=== PATIENT | male | born 1930 | race Caucasian/White ===

== ENCOUNTER 2017-07-16 14:11 | Emergency (ER) ==
[2017-07-16 14:19] VITALS: BP 163/55; TEMP 97.6; BMI 29.7
--- NOTE | 2017-07-16 14:52 | ED.PDOC ---
General ED Provider: Dr. LACHELLE CHRISTIANSON JR Chief Complaint: Constipation Stated Complaint: c/o constipation past week-- some out yesterday- enemas and laxatives- little results-- aggravated hemorrhoids--rectum painful--denies abd cramping sm amt of blood from rectum and hemorrhoid are now out ]97.6 76 20 96% 163/55. AAA. 3/-4.1x4.5. 12/05/17-4.5x3.7. 6/??/16--5.3x4.7. scan in 2 days Time Seen by Physician: 14:51 Mode of Arrival: Walk-In Information Source: Patient, Family Exam Limitations: No limitations Primary Care Provider: SIERRA [facility] Nursing and Triage Documentation Reviewed and Agree: No Review of Systems - Review Of Systems Constitutional: Reports: Malaise Eyes: Reports: No symptoms Ears, Nose, Mouth, Throat: Reports: No symptoms Respiratory: Reports: No symptoms Cardiac: Reports: Other (easily fatigued) GI: Reports: Abdomen distended, Abdominal pain, Constipated : Reports: No symptoms Musculoskeletal: Reports: No symptoms Skin: Reports: No symptoms Neurological: Reports: No symptoms Endocrine: Reports: No symptoms Hematologic/Lymphatic: Reports: No symptoms All Other Systems: Other Past Medical History - Past Medical History Previously Healthy: No Endocrine: Reports: None Cardiovascular: Reports: [place], Hypertension, Other (AAA) Respiratory: Reports: None Hematological: Reports: None Gastrointestinal: Reports: None Genitourinary: Reports: None Neuro/Psych: Reports: None Musculoskeletal: Reports: None Cancer: Reports: None - Surgical History General Surgical History: Reports: None - Family History Family History: Reports: None - Social History Smoking Status: Former smoker Hx Substance Use: No Alcohol Screening: None Physical Exam - Physical Exam Appearance: Well-appearing Pain Distress: Mild Eyes: ANDREW, EOMI, Conjunctiva clear ENT: Ears normal, Nose normal, Oropharynx normal Neck: Supple Respiratory: Airway patent, Breath sounds clear, Breath sounds equal, Respirations nonlabored Cardiovascular: RRR, Pulses normal, No rub, No murmur GI/: Soft, Nontender, No masses, Bowel sounds normal, No Organomegaly Musculoskeletal: Normal strength, ROM intact, No edema, No calf tenderness Skin: Warm, Dry, Normal color Neurological: Sensation intact, Motor intact, Reflexes intact, Cranial nerves intact, Alert, Oriented (responses are slow and accurate) Psychiatric: Affect appropriate, Mood appropriate Critical Care Note - Critical Care Note Total Time (mins): 0 Course - Course Hematology/Chemistry: 07/16/17 15:10 07/16/17 15:10 Orders, Labs, Meds: Lab Review 07/16/17 07/16/17 07/16/17 15:00 15:10 15:10 WBC 8.47 RBC 4.19 L Hgb 12.0 L Hct 36.2 L MCV 86.4 MCH 28.6 MCHC 33.1 RDW Coeff of Chato 13.9 Plt Count 291 Immature Gran % (Auto) 0.5 Neut % (Auto) 71.8 Lymph % (Auto) 13.6 Cache % (Auto) 9.8 Eos % (Auto) 3.9 Baso % (Auto) 0.4 Immature Gran # (Auto) 0.0 Neut # 6.1 Lymph # 1.2 Cache # 0.8 Eos # 0.3 Baso # 0.0 Sodium 134 L Potassium 5.1 Chloride 99 Carbon Dioxide 26 Anion Gap 14.1 BUN 18 Creatinine 1.27 H Estimated GFR (MDRD) 54.00 BUN/Creatinine Ratio 14.17 Glucose 79 L Calcium 9.7 Total Bilirubin 0.69 AST 20 ALT 18 Alkaline Phosphatase 73 Total Protein 7.5 Albumin 4.2 Globulin 3.3 Albumin/Globulin Ratio 1.27 Amylase 63 Lipase 31 Procalcitonin Urine Color Urine Clarity Urine pH Ur Specific [place] Urine Protein Urine Glucose (UA) Urine Ketones Urine Blood Urine Nitrite Urine Bilirubin Urine Urobilinogen Ur Leukocyte Esterase Stl Occult Blood (IFOB) Positive Stool Occult Blood #2 No specimen received Stool Occult Blood #3 No specimen received 07/16/17 07/16/17 15:10 15:10 WBC RBC Hgb Hct MCV MCH MCHC RDW Coeff of [place] Plt Count Immature Gran % (Auto) Neut % (Auto) Lymph % (Auto) Cache % (Auto) Eos % (Auto) Baso % (Auto) Immature Gran # (Auto) Neut # Lymph # Cache # Eos # Baso # Sodium Potassium Chloride Carbon Dioxide Anion Gap BUN Creatinine Estimated GFR (MDRD) BUN/Creatinine Ratio Glucose Calcium Total Bilirubin AST ALT Alkaline Phosphatase Total Protein Albumin Globulin Albumin/Globulin Ratio Amylase Lipase Procalcitonin < 0.05 Urine Color Yellow Urine Clarity Clear Urine pH 8.0 Ur Specific [place] 1.015 Urine Protein Negative Urine Glucose (UA) Negative Urine Ketones Negative Urine Blood Negative Urine Nitrite Negative Urine Bilirubin Negative Urine Urobilinogen 0.2 Ur Leukocyte Esterase Negative Stl Occult Blood (IFOB) Stool Occult Blood #2 Stool Occult Blood #3 Orders Category Date Time Status NPO REMINDER: IMAGING ONCE CARE 07/16/17 15:05 Completed ED IV/MEDIPORT/POWERPORT .ONCE EMERGENCY 07/16/17 15:03 Active AMYLASE Stat LAB 07/16/17 15:10 Completed CBC W/ AUTO DIFF Stat LAB 07/16/17 15:10 Completed COMPREHENSIVE METABOLIC PANEL Stat LAB 07/16/17 15:10 Completed LIPASE Stat LAB 07/16/17 15:10 Completed OCCULT BLOOD, STOOL Stat LAB 07/16/17 15:00 Completed PROCALCITONIN Stat LAB 07/16/17 15:10 Completed URINALYSIS C & S IF INDICATED Stat LAB 07/16/17 15:10 Completed 0.9 % Sodium Chloride [Saline Flush] MEDS 07/16/17 15:03 Active 1 syr IVF PRN PRN CT ABDOMEN/PELVIS W/WO CONTRAS Stat RADS 07/16/17 15:04 Completed Medications Generic Name Dose Route Start Last Admin Trade Name Freq PRN Reason Stop Dose Admin Sodium Chloride 1 syr 07/16/17 15:03 Saline Flush IVF PRN PRN To flush IV Vital Signs: Temp Pulse Resp BP Pulse Ox 07/16/17 14:11 97.6 F 76 20 163/55 H 96 Departure - Departure Time of Disposition: 17:29 Disposition: HOME SELF-CARE Discharge Problem: Constipation, Bleeding hemorrhoid Abdominal pain Qualifiers: Abdominal location: generalized Qualified Code(s): R10.84 - Generalized abdominal pain Instructions: Abdominal Pain (ED), Constipation (ED), Hemorrhoids (ED), Astringent (On the skin) Condition: Fair Pt referred to PMD for follow-up: Yes Additional Instructions: consider "tucks" for hemorrhoids may use Bentyl for abdominal pain clear liquids for 12 hours increase fiber in diet for 2-3 days constipation has cleared discomfort is probably from laxatives discuss cat scan with your physician lung changes may or may not require evaluation cat scan should be adequate(should not need further evaluation of aorta at this time(discuss withyour physician) Prescriptions: Dicyclomine HCl [Bentyl] 10 mg PO QID PRN #20 capsule PRN Reason: Abdominal Pain Witch Lenora [Tucks] 1 pkg TP QID PRN #1 pkg PRN Reason: hemorrhoids Allergies/Adverse Reactions: Allergies Penicillins Adverse Reaction (Verified 07/16/17 14:19) Home Medications: Ambulatory Orders Aspirin [Aspirin EC] 81 mg PO DAILYWM 05/16/14 Isosorbide Mononitrate [Imdur] 30 mg PO DAILY #30 tab.er.24h 05/16/14 Nitroglycerin [Nitro-Dur 0.4 mg/Hr] 0.4 mg TD DAILY 05/16/14 Nitroglycerin [Nitrostat] 0.4 mg SL Q5MIN X 3 DOSES PRN 05/16/14 Losartan/Hydrochlorothiazide [Hyzaar 100-25 Tablet] 1 each PO DAILY #30 tablet 03/08/15 Acebutolol HCl [Sectral] 200 mg PO Q12HR 07/16/17 Amlodipine Besylate [Norvasc] 5 mg PO BEDTIME 07/16/17 Dicyclomine HCl [Bentyl] 10 mg PO QID PRN #20 capsule 07/16/17 Digoxin [Lanoxin] 125 mcg PO DIRECTED 07/16/17 Furosemide [Lasix Tab] 20 mg PO QDAC 07/16/17 Potassium Chloride 10 meq PO DAILY 07/16/17 Witch Lenora [Tucks] 1 pkg TP QID PRN #1 pkg 07/16/17
[2017-07-16 15:08] LABS: OCCULT BLOOD INTERNAL QC 1 INTERNAL QC VALID; OCCULT BLOOD INTERNAL QC 2 INTERNAL QC VALID; OCCULT BLOOD INTERNAL QC 3 INTERNAL QC VALID; OCCULT BLOOD SAMPLE 1 POSITIVE (NEGATIVE); OCCULT BLOOD SAMPLE 2 NO SPECIMEN RECEIVED (NEGATIVE); OCCULT BLOOD SAMPLE 3 NO SPECIMEN RECEIVED (NEGATIVE)
[2017-07-16 15:16] LABS: BASOPHILS % (AUTO) 0.4 % (0.0-3.0); EOSINOPHILS # (AUTO) 0.3 K/ul (0.0-0.7); EOSINOPHILS % (AUTO) 3.9 % (0.0-7.0); HEMATOCRIT 36.2 % (42.0-52.0); IMMATURE GRANULOCYTE % (AUTO) 0.5 % (0.0-5.0); LYMPHOCYTES # (AUTO) 1.2 K/uL (0.60-3.4); LYMPHOCYTES % (AUTO) 13.6 (10.0-50.0); MEAN CORPUSCULAR HEMOGLOBIN 28.6 pg (27.0-31.0); MEAN CORPUSCULAR HGB CONC 33.1 (31.8-35.4); MEAN CORPUSCULAR VOLUME 86.4 fl (80.0-94.0); MONOCYTES # (AUTO) 0.8 K/uL (0.4-2.0); MONOCYTES % (AUTO) 9.8 (0-10); NEUTROPHILS # (AUTO) 6.1 K/ul (2.0-6.9); NEUTROPHILS % (AUTO) 71.8; PLATELET COUNT 291 10^3/uL (140-440); RED BLOOD COUNT 4.19 10^6/ul (4.70-6.10); WHITE BLOOD COUNT 8.47 K/ul (4.2-10.2)
[2017-07-16 15:20] LABS: BILIRUBIN,URINE Negative (NEGATIVE); KETONES,URINE Negative (NEGATIVE); LEUKOCYTE ESTERASE ,URINE Negative (NEGATIVE); NITRITE,URINE Negative (NEGATIVE); PROTEIN,URINE Negative (NEGATIVE); URINE, BLOOD Negative (NEGATIVE)
[2017-07-16 15:35] LABS: ALBUMIN 4.2 g/dL (3.4-5.0); ALBUMIN/GLOBULIN RATIO 1.27; ANION GAP 14.1; BILIRUBIN,TOTAL 0.69 mg/dL (0.00-1.20); BUN/CREATININE RATIO 14.17; CALCIUM 9.7 mg/dL (8.2-10.2); CREATININE 1.27 mg/dL (0.60-1.10); POTASSIUM 5.1 mmol/L (3.5-5.1); TOTAL PROTEIN 7.5 g/dL (5.8-8.1)
[2017-07-16 15:45] LABS: ADD URINE MICROSCOPIC NO
--- NOTE | 2017-07-16 16:37 | CT ---
EXAM: CT ABDOMEN AND PELVIS HISTORY: Family history of pancreatic cancer, constipation. TECHNIQUE: CT abdomen and pelvis with and without intravenous contrast. Images were reconstructed u sing 5 mm section thickness. Reformations were prepared. 100 ml Visipaque [id number] FINDINGS: No comparison CT abdomen and pelvis. Some comparison may be made to CT pelvis dated 015 and ultrasound aorta dated 01/25/2015. Small focal low attenuation lesion of the liver near the gallbladder fossa measuring 1.58 cm. Spleen within normal limits. Gallbladder, pancreas and adrenal glands appear normal. Subtle nonspecific b ilateral perinephric fat stranding. No hydronephrosis or evidence of ureteral obstruction. Moderate ly severe atherosclerotic disease is present. There is fusiform aneurysmal caliber of the infrarenal aorta measuring up to 4.6 x 4.8 cm. This is slightly greater than the 4.1 x 4.5 cm identified sonog raphically on 01/25/2015. CT is more sensitive although some enlargement could have occurred. There is no evidence of aortic leakage. No gastric distension. Normal appendix. Bowel gas pattern is nonobstructive. No excessive fecal re tention. Mild prostate enlargement. Urinary bladder is unremarkable. There is no ascites. Prominent fatty bilateral inguinal canals. The bones demonstrate diffuse degenerative disc and facet disease of the spine which is moderately severe. There is a chronic-appearing compression fracture of L3 (lowermost fully formed disc space taken as L5/S1). This level was not included within the fie ld of view on prior CT pelvis for comparison. There is multilevel central canal stenosis of the lumb ar spine. Lung bases reveal chronic interstitial changes with bronchovascular thickening and mild br onchiectasis. There is a 0.86 cm nodular opacity in the posterior right lung base which is indetermi jayda. No pneumoperitoneum. IMPRESSION: 1. Normal bowel gas pattern. No excessive fecal retention. The pancreas appears normal. 2. Moderately severe atherosclerotic disease. Fusiform aneurysm of the infrarenal aorta measures sl ightly greater than prior ultrasound. Currently 4.6 x 4.8 cm. 3. Probable small liver cyst. 4. Nonspecific perinephric fat stranding. 5. Right lung base nodular opacity measuring 0.86 cm could represent atelectasis, scarring or benign /malignant nodule. Consider follow-up CT thorax.
== END 2017-07-16 17:49 | disposition home or self-care (01) ==
LOC: ED 14:11
DX: K59.00 Constipation, unspecified (principal); K64.9 Unspecified hemorrhoids; R10.84 Generalized abdominal pain; Z79.899 Other long term (current) drug therapy
CPT/HCPCS: 36415; 80053; 81001; 82150; 82272; 83690; 84145; 85025; 99283

== ENCOUNTER 2017-07-18 07:44 | Outpatient (CLI) ==
--- NOTE | 2017-07-18 08:47 | CT ---
Exam: CT of the abdomen pelvis with intravenous contrast. Comparison: 07/16/2017. Reason for exam: AAA. FINDINGS: Parenchymal changes are seen within the lung bases. There is ground-glass and micro nodul arity. Similar appearing 1.7 cm hepatic hypodensity adjacent to the gallbladder on axial image number 26. T he gallbladder, spleen, adrenal glands, and pancreas appear grossly unremarkable. No hydronephrosis, hydroureter, or nephrolithiasis is seen in either kidney. There is atherosclerotic disease of the aorta and distal arterial vasculature. Infrarenal abdominal aortic aneurysm is seen measuring approximately 5.5 x 5.0 x 4.9 cm and is not si gnificantly changed from the previous exam. No focal small bowel dilatation or transition point. The appendix is grossly unremarkable. No inflammatory changes are seen in the abdominal or pelvic fat. Degenerative disease is seen in the lumbosacral spine with a chronic-appearing compression deformity at L4 and intervertebral body disc space height loss with facet hypertrophy and osteophyte formation. No suspicious appearing osteoblastic or osteolytic lesion is seen. Impression: 1. Similar appearing infrarenal abdominal aortic aneurysm measuring 5.5 x 5.0 x 4.9 cm not significa ntly changed from the previous exam. 2. Similar appearing hepatic hypodensity. 3. Similar appearing degenerative disease and compression deformities. 4. Basilar nodularity with ground-glass and chronic parenchymal findings. Imaging can be seen with infection, inflammation, and chronic lung disease. Cannot completely rule out neoplasia.
== END 2017-07-18 07:45 | disposition home or self-care (01) ==
LOC: RAD 07:44
PROVIDERS: ATTEND Internal Medicine
DX: I71.9 Aortic aneurysm of unspecified site, without rupture (principal)

== ENCOUNTER 2017-07-21 08:51 | Outpatient (CLI) ==
--- NOTE | 2017-07-21 09:58 | CT ---
EXAM: CT chest with contrast HISTORY: Abnormal abdominal CT COMPARISON: CT chest 02/20/2015 and 05/17/[address] abdomen pelvis 07/18/2017 and 07/16/2017 TECHNIQUE: CT chest performed with intravenous contrast. Coronal and sagittal reformatted images ob tained. FINDINGS: Thyroid and thoracic inlet appear normal. Heart is mildly enlarged. No pericardial effus ion. Aorta normal in caliber. Atherosclerosis. Coronary calcifications. Ectasia ascending aorta m easuring approximately 3.9 cm, noting motion artifact limits measurement technique. Esophagus unrema rkable. No mediastinal, hilar, or axillary lymphadenopathy. Calcified mediastinal and hilar lymph n odes, consistent with old granulomatous disease. Visualized portion upper abdomen no acute abnormalit y. Focal fat attenuation in the pancreatic neck region. Stable liver cyst. No acute abnormalities of the bones. Degenerative change in the spine. Mild chronic loss of height of several vertebral bodi es. Central airway patent. No pleural effusion. No pneumothorax. The right basilar nodular density seen on CT 07/16/2017 no longer present, likely represented atelectasis. Mild bibasilar atelectasis. Bibasilar bronchiectasis and bibasilar lower airway thickening. Mild chronic peripheral reticulatio n and scarring. Mild emphysematous change. No airspace consolidation. IMPRESSION: 1. Bibasilar bronchiectasis and lower airway thickening, likely infectious/inflammatory bronchioliti s. 2. Mild emphysematous change. Scattered scarring. 3. Stable 1 cm nodule right lung, unchanged from 2013, consistent with benign etiology. A right bas ilar nodular density described on CT 07/16/2017 is no longer present, likely represented atelectasis. Mild bibasilar atelectasis present. 4. Ectasia ascending aorta measuring approximately 3.9 cm, noting motion artifact limits measurement technique. 5. Findings of old granulomatous disease.
== END 2017-07-21 08:52 | disposition home or self-care (01) ==
LOC: RAD 08:51
PROVIDERS: ATTEND Internal Medicine
DX: R93.5 Abnormal findings on diagnostic imaging of other abdominal regions, including retroperitoneum (principal)